=== PATIENT | male | born 1965 | race Hispanic/Latino ===

== ENCOUNTER → 2021-12-30 | Outpatient (CLI) | payer BC ==
[~2021-12-30] MED LIST: DIATRIZOATE MEGL/DIATRIZOA SOD 30 ML BTL PO ONE; GLIPIZIDE5 MG PO; GLYBURIDE; IOPAMIDOL 370 MG/ML 100 ML INFUS..BTL INJ ONE; LEVEMIR100 UNIT/1 SC; MIRALAX17 GM PO; NOVOLIN 70100 UNITS/ SC; Z.0.TRADJENTA5 MG PO; Z.1.METFORMIN HCL100 PO
[2021-12-30 08:34] LABS: CREATININE, SERUM 0.72 mg/dL (0.72-1.25)
== END ==
LOC: CT 07:30
PROVIDERS: ATTEND Internal Medicine Gastroenterology
DX: R10.9 Unspecified abdominal pain (principal)
CPT/HCPCS: 36415; 74177; 82565; 84520; Q9963; Q9967

== ENCOUNTER → 2022-01-08 | Day surgery (SDC) | payer BC ==
[~2022-01-08] MED LIST changes: +ATORVASTATIN CA20 MG PO; -DIATRIZOATE MEGL/DIATRIZOA SOD 30 ML BTL PO ONE; +HYOSCYAMINE SULFATE 0.5 MG/ML INJ ONE; -IOPAMIDOL 370 MG/ML 100 ML INFUS..BTL INJ ONE; +JARDIANCE10 MG PO; +LIDOCAINE HCL 2% LOCAL INJ 5 ML SDV VIAL INJ ONE; +METOCLOPRAMIDE HCL 10 MG/2ML VIAL ONE; +MIDAZOLAM HCL 2 MG/2 ML VIAL ONE; +OZEMPIC0.25 MG/0. SC; +PROPOFOL IV EMULSION 10 MG/ML 20 ML VIAL ONE; +TRESIBA FL100 UNIT/1 SC
[2022-01-08 09:15] VITALS: BP 117/82
== END | disposition home or self-care (01) ==
LOC: OR 07:17
PROVIDERS: ATTEND Internal Medicine Gastroenterology
DX: K20.90 Esophagitis, unspecified without bleeding (principal); D12.2 Benign neoplasm of ascending colon; D12.3 Benign neoplasm of transverse colon; K29.70 Gastritis, unspecified, without bleeding; K31.1 Adult hypertrophic pyloric stenosis; K31.89 Other diseases of stomach and duodenum; R19.7 Diarrhea, unspecified; K21.9 Gastro-esophageal reflux disease without esophagitis; K59.00 Constipation, unspecified; K64.8 Other hemorrhoids; D72.820 Lymphocytosis (symptomatic); Z71.3 Dietary counseling and surveillance; E11.9 Type 2 diabetes mellitus without complications; E78.00 Pure hypercholesterolemia, unspecified; J45.909 Unspecified asthma, uncomplicated; M54.9 Dorsalgia, unspecified; Z01.810 Encounter for preprocedural cardiovascular examination; Z01.812 Encounter for preprocedural laboratory examination; Z20.822 Contact with and (suspected) exposure to COVID-19; Z79.4 Long term (current) use of insulin; Z79.899 Other long term (current) drug therapy; Z68.30 Body mass index [BMI] 30.0-30.9, adult; Z87.891 Personal history of nicotine dependence
CPT/HCPCS: 0223U; 36415 ×2; 43239; 43245; 43450; 45380; 45385; 82948; 83630; 83993; 87045; 87177; 87324; 87328; 87449; 93005; C9113; J1980; J2001; J2250; J2704; J2765; 45378

== ENCOUNTER 2022-03-10 10:36 | Emergency (ER) | payer BC, OTHER ==
[~2022-03-10] VITALS: Ht 172.7 cm; Wt 92.1 kg
[~2022-03-10 10:36] MED LIST changes: -HYOSCYAMINE SULFATE 0.5 MG/ML INJ ONE; -LIDOCAINE HCL 2% LOCAL INJ 5 ML SDV VIAL INJ ONE; -METOCLOPRAMIDE HCL 10 MG/2ML VIAL ONE; -MIDAZOLAM HCL 2 MG/2 ML VIAL ONE; -PROPOFOL IV EMULSION 10 MG/ML 20 ML VIAL ONE
[2022-03-10] MEDS ORDERED: HYDROCODONE/APAP 5MG-325MG TAB PO ONE (11:30)
[2022-03-10] MEDS ORDERED: IBUPROFEN600 MG PO (13:15)
[2022-03-10] MEDS ORDERED: ACETAMINOPHEN-1 EAC4 PO (13:15)
== END 2022-03-10 13:24 | disposition home or self-care (01) ==
LOC: ER 10:47
DX: S46.091A Other injury of muscle(s) and tendon(s) of the rotator cuff of right shoulder, initial encounter (principal); X50.9XXA Other and unspecified overexertion or strenuous movements or postures, initial encounter; Y92.89 Other specified places as the place of occurrence of the external cause; E11.9 Type 2 diabetes mellitus without complications
CPT/HCPCS: 93971; 99283